=== PATIENT | male | born 1960 | race Caucasian/White ===

== ENCOUNTER 2016-08-29 18:27 | Emergency (ER) | payer OTHER ==
[~2016-08-29] VITALS: Ht 172.7 cm; Wt 102.1 kg
[2016-08-29 18:54] VITALS: BP 164/98
== END 2016-08-29 20:20 | disposition left against medical advice (07) ==
LOC: EME 18:27
DX: R21 Rash and other nonspecific skin eruption (principal); Z53.21 Procedure and treatment not carried out due to patient leaving prior to being seen by health care provider